=== PATIENT | female | born 1990 | race Two or more races ===

== ENCOUNTER → 2019-02-02 16:41 | Outpatient (CLI) | payer OTHER ==
[~2019-02-02 16:41] MED LIST: AMOX1TAB12 PO; DESPEC-DM TABL1 EACH PO; KETO10TA2 PO; ZITHROMAX200 MG PO
== END | disposition home or self-care (01) ==
LOC: LAB 16:41
DX: J11.1 Influenza due to unidentified influenza virus with other respiratory manifestations (principal); J06.9 Acute upper respiratory infection, unspecified

== ENCOUNTER 2019-04-03 12:36 | Outpatient (CLI) | payer OTHER | END 2019-04-03 12:52 | disposition home or self-care (01) | LOC: LAB 12:36 | DX: J11.1 Influenza due to unidentified influenza virus with other respiratory manifestations (principal); J11.89 Influenza due to unidentified influenza virus with other manifestations ==